=== PATIENT | female | born 1990 | race Caucasian/White ===

== ENCOUNTER 2019-04-27 14:07 | Outpatient (CLI) | payer OTHER ==
--- NOTE | 2019-04-27 15:27 | ULT ---
Complete obstetrical ultrasound INDICATION: Evaluate anatomy; the patient recently relocated to the area. All prior obstetrical imaging was [place] out of state. TECHNIQUE: Grayscale, M-mode Doppler and Doppler images were obtained of the abdomen and pelvis to ev aluate the patient's known . COMPARISON: None. FINDINGS: Number of gestations: Single. Presentation: Cephalic. Placental location: Posterior Previa: No evidence for previa. Cervical length: Not measured SHIRA: 14.9 cm. heart rate: 139 bpm. Biparietal diameter: 8.33cm, 33 weeks 4 days, 86% of. Head circumference: 30.37 cm, 33 weeks 5 days, 65th percentile Abdominal circumference: 20.36 cm, 32 weeks and 3 days, 65th percentile Femoral length: 6.23cm, 32 weeks and 2 days, 48th percentile Estimated weight: 2007 g +/- 297g 4 lbs. 7 oz. +/- 10 ounces, 63rd percentile SURVEY: head: Normal appearing. Cerebellum: Normal appearing. Cisterna magna: Normal appearing. Lateral ventricles: Normal appearing. 4 chamber heart: Normal appearing.. Stomach: Normal appearing. Kidneys: Normal appearing. Cord insertion: Normal appearing. Bladder: Normal appearing. Spine: Normal appearing. Lips and nose: Normal appearing. Extremities: Normal appearing. Three-vessel CORD: Abnormal. Two-vessel cord present. Single umbilical artery identified at the level of the bladder. The average gestational age by ultrasound is 33 weeks and 0 dayswith estimated due date of May. The estimated dates by clinical data is 31 weeks and 6 dayswith estimated due date of June 23 0. IMPRESSION: 1. Single umbilical artery. The visualized aspects of the placenta are normal appearing. The placenta l cord insertion was not demonstrated. The visualized heart and kidneys appeared within normal limits. Continued follow-up is recommended. 2. Size and dates as above
== END 2019-04-27 14:08 | disposition home or self-care (01) ==
LOC: SCSULT 14:07
PROVIDERS: ATTEND Nurse Practitioner
DX: Z34.83 Encounter for supervision of other normal pregnancy, third trimester (principal); Z3A.33 33 weeks gestation of pregnancy
CPT/HCPCS: 76805

== ENCOUNTER 2019-05-23 15:51 | Inpatient (IN) | payer OTHER ==
[2019-05-23 17:11] VITALS: BMI 33.1
[2019-05-23] MEDS ORDERED: Ondansetron PF 4 MG/2 ML Vial IVP PRN ×2 (17:38→22:32)
[2019-05-23] MEDS ORDERED: Acetaminophen 500 MG TAB PO PRN (17:38)
[2019-05-23] MEDS ORDERED: Promethazine HCl 25 MG/ML VIAL IM PRN (17:38)
[2019-05-23] MEDS ORDERED: Butorphanol Tartrate 1 MG/ML VIAL SLOW IVP PRN (17:38)
[2019-05-23] MEDS ORDERED: Diphenoxylate HCl/Atropine Tablet PO PRN (17:38)
[2019-05-23] MEDS ORDERED: Lidocaine 1% (PF) 30 ML VIAL SC PRN (17:38)
[2019-05-23] MEDS ORDERED: Methylergonovine 0.2 MG/ML VIAL IM PRN (17:38)
[2019-05-23] MEDS ORDERED: Ibuprofen 800 MG TAB PO PRN (17:38)
[2019-05-23] MEDS ORDERED: Carboprost 250 MCG/ML AMP IM PRN (17:38)
[2019-05-23] MEDS ORDERED: hydrALAZINE 20 MG/ML VIAL SLOW IVP PRN ×2 (17:38→22:32)
[2019-05-23] MEDS ORDERED: NS / Oxytocin 40 units/1000ml 1,000 ML IV PRN (17:38)
[2019-05-23] MEDS ORDERED: Misoprostol 200 MCG TAB PR PRN (17:38)
[2019-05-23] MEDS ORDERED: HYDROcodone/Acetaminophen 5/325 mg Tablet PO PRN ×3 (17:38→22:32)
--- NOTE | 2019-05-23 17:42 | PDOC.LDHP ---
Labor and Delivery H&P Chief complaint: contractions HPI: 29y at 35w4d by LMP c/w reported first trimester sono with painful contractions since this am. Initally were q 20min, rested and drank water however they became more frequent and intense q 5min. No LOF VB discharge urinary sx. Good FM. Current gestational age (weeks): 35 Due date: 06/23/19 Dating criteria: last menstrual period Grav: 9 Para: 1 OB History Details: h/o RPL Current complications: other (2VC) Abnormal US findings: Yes (2VC) Past Medical History: PTSD, remote hx of seizures in teens Current medications: pre-dariela vitamins Previous surgical history: other (eye surgery) Allergies/Adverse Reactions: Allergies Allergy/AdvReac Type Severity Reaction Status Date / Time iodine Allergy Verified 05/23/19 17:02 Social history: none - Physical Exam Vital signs reviewed and normal: yes General: breathing through contractions Heart: RRR Lungs: CTAB Abdomen: gravid Extremeties: no edema FHT: category 1 [place] contractions every: 5min - Vaginal Exam cm dilated: 6 Effacement: 90% Station: -1 - OB Labs Blood type: unknown RH: unknown Antibody Screen: unknown HIV: unknown RPR: unknown HEPSAg: unknown 1 hour GCT: unknown GBS: positive Urine drug screen: not done - Assessment L&D Assessment: labor - Plan Plan: admit to L&D, GBS antibiotic prophylaxis, informed consent obtained, anesthesia consult for pain management, other (betamethasone for prematurity)
[2019-05-23] MEDS ORDERED: Lactated Ringer's 1,000 ML IV SCH (17:45)
[2019-05-23] MEDS ORDERED: Penicillin G Potassium 5 MILL.UNITS in Sodium Chloride 0.9% 100 ML IVPB SCH (17:45)
[2019-05-23] MEDS ORDERED: Betamet Acet/Betamet Na Ph 30 MG/5 ML VIAL IM SCH (18:00)
[2019-05-23 18:16] LABS: Hemoglobin 11.7 g/dL (12.0-16.0); Mean Corpuscular HGB CONC 33.9 g/dL (32.0-36.0); Mean Corpuscular Hemoglobin 31.5 pg (27.0-31.0); Mean Platelet Volume 8.2 fL (7.4-10.4); Platelet Count 277 thou/uL (130-400); RBC Distribution Width 11.8 % (11.5-14.5); Red Blood Cell (RBC) Count 3.71 mill/uL (4.20-5.40); White Blood Cell (WBC) Count 14.1 thou/uL (4.8-10.8)
[2019-05-23 18:49] LABS: Syphilis Antibody Nonreactive (Nonreactive); Syphilis Antibody Index 0.03 S/CO (<1.00 Non-Reactive)
[2019-05-23 18:50] LABS: HBSAg Index 0.18 S/CO (0-0.99); HIV (1/2) Antibody/Antigen Non-Reactive (NonReactive); HIV 1/2 INDEX 0.06 S/CO (<1.00); Hep B Surf Ag Non-Reactive S/CO (NonReactive)
[2019-05-23] MEDS ORDERED: Azithromycin 250 MG TAB PO SCH (19:45)
[2019-05-23] MEDS ORDERED: Misoprostol 200 MCG TAB ONE (19:48)
[2019-05-23] MEDS ORDERED: Penicillin G 2.5 MILL.units 2.5 MILL.UNITS in Premix Bag 1 BAG IVPB SCH (21:00)
[2019-05-23] MEDS ORDERED: Bisacodyl 10 MG SUPP PR PRN (22:32)
[2019-05-23] MEDS ORDERED: Milk Of Magnesia 30 ML UDCUP PO PRN (22:32)
[2019-05-23] MEDS ORDERED: NS / Oxytocin 40 units/1000ml 1,000 ML IV SCH (22:32)
[2019-05-23] MEDS ORDERED: Benzocaine-Menthol 82.5 ML CAN TOP PRN (22:32)
[2019-05-23 22:36] LABS: Bacteria/HPF 4+ HPF (None Seen); Bilirubin Negative (Negative); Blood, Urine 3+ (Negative); Clarity Turbid (Clear); Glucose, Urine (Dipstick) Normal (Negative); Leukocyte 250 Leu/uL (Negative); Nitrite Negative (Negative); Protein, Urine (Dipstick) Negative (Neg-Trace); RBC/HPF Greater than 50 HPF (0-3); Urobilinogen Normal mg/dL (Less than 2); WBC/HPF 21-50 HPF (0-3)
[2019-05-23 22:43] LABS: Amphetamine Not Detected (NotDetected); Barbiturates Screen Not Detected (NotDetected); Benzodiazepine Screen Not Detected (NotDetected); Cocaine Metabolite Screen Not Detected (NotDetected); Medtox Control Line Valid? VALID (VALID); Medtox Reader # READER 1; Methadone Not Detected (NotDetected); Methamphetamine Not Detected (NotDetected); Opiate Screen Not Detected (NotDetected); Oxycodone Screen Not Detected (NotDetected); Phencyclidine (PCP) Not Detected (NotDetected); THC/Cannabinoid Screen Not Detected (NotDetected); Tricyclic Screen Not Detected (NotDetected)
[2019-05-23] MEDS ORDERED: Docusate Calcium (SURFAK) 240 MG CAP PO SCH (22:45)
[2019-05-24] MEDS: Ibuprofen 800 MG TAB PO SCH ×3 (05:06→21:56)
[2019-05-24] MEDS: Prenatal Vitamin 1 TAB PO SCH (08:21)
[2019-05-24] MEDS: Docusate Calcium (SURFAK) 240 MG CAP PO SCH ×2 (08:21→21:56)
[2019-05-24] MEDS ORDERED: Adacel (T-DAP) 0.5 ML SYRINGE IM ONE (09:00)
[2019-05-24] MEDS: Ferrous Sulfate 325 MG TAB PO SCH ×2 (09:02→09:17)
[2019-05-24] MEDS ORDERED: Calcium Carbonate 500 MG ChewTAB PO PRN (22:10)
[2019-05-24] MEDS ORDERED: Mag-Al 1200 mg/1200 mg/30 ML UDCUP PO SCH (22:15)
[2019-05-25] MEDS: Ibuprofen 800 MG TAB PO SCH ×3 (05:57→22:07)
[2019-05-25] MEDS: Ferrous Sulfate 325 MG TAB PO SCH (09:39)
[2019-05-25] MEDS: Prenatal Vitamin 1 TAB PO SCH (09:40)
[2019-05-25] MEDS: Docusate Calcium (SURFAK) 240 MG CAP PO SCH ×2 (09:40→22:07)
[2019-05-26] MEDS: Ferrous Sulfate 325 MG TAB PO SCH ×2 (00:32→09:45)
[2019-05-26 02:06] VITALS: BP 123/66; TEMP 98.3
[2019-05-26] MEDS: Ibuprofen 800 MG TAB PO SCH ×2 (05:13→13:37)
[2019-05-26] MEDS: Prenatal Vitamin 1 TAB PO SCH (09:43)
[2019-05-26] MEDS: Docusate Calcium (SURFAK) 240 MG CAP PO SCH (09:45)
== END 2019-05-26 15:50 | disposition home or self-care (01) | DRG 807 ==
LOC: L&D/OP 15:51 → L&D 17:38 → 3SW 05-24 00:25
PROVIDERS: ADMIT Student in an Organized Health Care Education/Training Program; ATTEND Student in an Organized Health Care Education/Training Program
PROC: 10E0XZZ Delivery of Products of Conception, External Approach (ICD-10-PCS; principal; 2019-05-23)
PROC: 0KQM0ZZ Repair Perineum Muscle, Open Approach (ICD-10-PCS; 2019-05-23)
DX: O99.344 Other mental disorders complicating childbirth (principal); Z37.0 Single live birth; F41.9 Anxiety disorder, unspecified; F32.9 Major depressive disorder, single episode, unspecified; Z3A.35 35 weeks gestation of pregnancy; O70.1 Second degree perineal laceration during delivery
CPT/HCPCS: 36415; 80306; 81001; 85027; 85461; 86762; 86780; 86850; 86870; 86900; 86901; 87340; 87389; 88307; 90384; 96372; J0702; J2405; J2540; J3490